=== PATIENT | male | born 1940 | race Caucasian/White ===

== ENCOUNTER 2018-01-04 06:40 | Inpatient (IN) | payer OTHER ==
[~2018-01-04] VITALS: Ht 182.9 cm; Wt 98.2 kg
[2018-01-04] MEDS ORDERED: SODIUM CHLORIDE FLUSH 10ML SYR IVF ONE (07:00)
[2018-01-04] MEDS ORDERED: methylPREDNISolone SOD SUCC 125 MG/2 ML IVP ONE (07:00)
[2018-01-04] MEDS ORDERED: PLEASE ENTER ALLERGIES MC SCH (07:00)
[2018-01-04] MEDS ORDERED: methylPREDNISolone SOD SUCC 125 MG/2 ML ONE (07:20)
[2018-01-04 07:35] LABS: BASOPHILS % (AUTO) 0 % (0-1); EOSINOPHILS # (AUTO) 0.01 x10^3/uL (0-0.4); EOSINOPHILS % (AUTO) 0 % (1-7); LYMPHOCYTES # (AUTO) 0.32 x10^3/uL (1-3.4); LYMPHOCYTES % (AUTO) 3 % (22-44); MD NO; MEAN CORPUSCULAR HEMOGLOBIN 27.7 pg (27.5-34.5); MEAN CORPUSCULAR HGB CONC 32.9 g/dL (33.2-36.2); MEAN PLATELET VOLUME 9.1 fL (7.4-10.4); MONOCYTES # (AUTO) 0.75 x10^3/uL (0.2-0.8); MONOCYTES % (AUTO) 6 % (2-9); NEUTROPHILS # (AUTO) 11.26 x10^3/uL (1.8-6.8); NEUTROPHILS % (AUTO) 91 % (42-75); PLATELET COUNT 224 x10^3/uL (130-400); RED BLOOD COUNT 5.56 x10^6/uL (4.38-5.82)
[2018-01-04 07:42] LABS: ALANINE AMINOTRANSFERASE 17 U/L (12-78); ALBUMIN 3.5 g/dL (3.4-5.0); ANION GAP 9 mmol/L (5-15); CALCIUM 8.5 mg/dL (8.5-10.1); CHLORIDE 103 mmol/L (98-107)
[2018-01-04 07:47] LABS: ALKALINE PHOSPHATASE 106 U/L (45-117); BILIRUBIN,TOTAL 1.4 mg/dL (0.2-1.0); CREATININE 1.11 mg/dL (0.7-1.3); TOTAL PROTEIN 7.1 g/dL (6.4-8.2)
[2018-01-04] MEDS ORDERED: CEFAZOLIN PMX 1GM/50ML 0 ML ONE (07:51)
[2018-01-04 07:56] LABS: TROPONIN I 0.412 ng/mL (0.000-0.045)
[2018-01-04 08:00] LABS: INTERNATIONAL NORMALIZED RATIO 1.14 (0.93-1.1)
[2018-01-04] MEDS ORDERED: AZITHROMYCIN 500 MG in SODIUM CHLORIDE 0.9% 250 ML IV ONE (08:00)
[2018-01-04] MEDS ORDERED: CEFTRIAXONE PMX 1GM/50ML 50 ML IV ONE ×2 (08:00→13:30)
[2018-01-04] MEDS ORDERED: HEPARIN 25,000 UNITS/500ML PMX 500 ML ONE (08:11)
[2018-01-04] MEDS ORDERED: HEPARIN 5,000 UNITS/ML, 1ML ONE (08:11)
[2018-01-04] MEDS ORDERED: OMNIPAQUE 350 MG/ML, 100ML BOTTLE ONE (08:12)
[2018-01-04] MEDS ORDERED: ATEN100T PO ×2 (08:15→09:24)
[2018-01-04] MEDS ORDERED: HEPARIN 5,000 UNITS/ML, 1ML IV ONE ×2 (08:30→09:00)
[2018-01-04] MEDS ORDERED: HEPARIN 5,000 UNITS/ML, 1ML IV PRN (08:30)
[2018-01-04] MEDS ORDERED: HEPARIN 25,000 UNITS/500ML PMX 500 ML IV PRN (08:30)
[2018-01-04] MEDS: HEPARIN 25,000 UNITS/500ML PMX 500 ML IV PRN (09:07)
[2018-01-04] MEDS ORDERED: OMEP-110 PO (09:24)
[2018-01-04] MEDS ORDERED: TAMS0.4C2 PO (09:24)
[2018-01-04] MEDS ORDERED: HYDR25TA6 PO (09:24)
[2018-01-04] MEDS ORDERED: GLIP-33 PO (09:24)
[2018-01-04] MEDS ORDERED: WARF-36 PO (09:24)
[2018-01-04] MEDS ORDERED: LISI-170 PO (09:24)
[2018-01-04] MEDS ORDERED: SIMV10TA3 PO (09:24)
[2018-01-04] MEDS ORDERED: METF500T17 PO (09:24)
[2018-01-04 13:18] VITALS: BP 118/60
[2018-01-04] MEDS ORDERED: LABETALOL 5MG/ML, 20ML IVPush PRN (13:30)
[2018-01-04] MEDS ORDERED: ONDANSETRON ODT 4 MG PO PRN (13:30)
[2018-01-04] MEDS ORDERED: hydrALAzine 20 MG/ML, 1ML IVPush PRN (13:30)
[2018-01-04 14:35] LABS: HEMOGLOBIN A1C 6.3 % (4.2-6.3)
[2018-01-04 15:07] LABS: THYROID STIMULATING HORMONE 0.178 mIU/L (0.358-3.740)
[2018-01-04] MEDS: methylPREDNISolone SOD SUCC 125 MG/2 ML IVPush SCH ×2 (15:47→22:39)
[2018-01-04] MEDS ORDERED: MAGNESIUM SULFATE PMX 2GM/50ML 50 ML IV ONE ×2 (16:30→17:00)
[2018-01-04] MEDS: HEPARIN 5,000 UNITS/ML, 1ML IV PRN (16:35)
[2018-01-04] MEDS: ASPIRIN 81 MG TABLET EC PO SCH (16:43)
[2018-01-04 17:14] VITALS: BP 129/65
[2018-01-04] MEDS ORDERED: CEFTRIAXONE PMX 2GM/50ML 50 ML IV SCH (17:30)
[2018-01-04 17:49] LABS: MICROSCOPIC INDICATED
[2018-01-04 19:25] LABS: CULTURE INDICATED? NO
[2018-01-04 19:37] VITALS: BP 120/63
[2018-01-04] MEDS: ATORVASTATIN 80 MG TABLET PO SCH (22:39)
[2018-01-04] MEDS: DOXYCYCLINE 100MG TABLET PO SCH (22:39)
[2018-01-05 02:09] VITALS: BP 120/63
[2018-01-05] MEDS: methylPREDNISolone SOD SUCC 125 MG/2 ML IVPush SCH ×6 (03:00→21:00)
[2018-01-05] MEDS: HEPARIN 25,000 UNITS/500ML PMX 500 ML IV PRN ×2 (05:10→06:25)
[2018-01-05] MEDS: ASPIRIN 81 MG TABLET EC PO SCH (06:00)
[2018-01-05] MEDS: DOXYCYCLINE 100MG TABLET PO SCH ×2 (10:00→20:57)
[2018-01-05 12:17] VITALS: BP 131/67
[2018-01-05] MEDS: NITROGLYCERIN 0.4 MG BOTTLE (25 TABS) SL PRN (12:50)
[2018-01-05 13:11] LABS: MEAN CORPUSCULAR HEMOGLOBIN 28.3 pg (27.5-34.5); MEAN CORPUSCULAR HGB CONC 33.4 g/dL (33.2-36.2); MEAN CORPUSCULAR VOLUME 84.7 fL (81-97); MEAN PLATELET VOLUME 9.4 fL (7.4-10.4); PLATELET COUNT 212 x10^3/uL (130-400); RED BLOOD COUNT 5.07 x10^6/uL (4.38-5.82); RED CELL DISTRIBUTION WIDTH 14.5 % (9.4-14.8)
[2018-01-05 13:17] LABS: INTERNATIONAL NORMALIZED RATIO 1.19 (0.93-1.1); PROTHROMBIN TIME 12.5 Seconds (9.6-11.5)
[2018-01-05 13:20] LABS: ALANINE AMINOTRANSFERASE 21 U/L (12-78); ALBUMIN 2.9 g/dL (3.4-5.0); ANION GAP 9 mmol/L (5-15); CALCIUM 8.4 mg/dL (8.5-10.1); CHLORIDE 107 mmol/L (98-107); CREATININE 1.22 mg/dL (0.7-1.3)
[2018-01-05 13:25] LABS: ALKALINE PHOSPHATASE 79 U/L (45-117); BILIRUBIN,TOTAL 0.8 mg/dL (0.2-1.0); TOTAL PROTEIN 6.5 g/dL (6.4-8.2)
[2018-01-05] MEDS: ACETAMINOPHEN 325 MG TABLET PO PRN (13:26)
[2018-01-05] MEDS ORDERED: MORPHINE SULFATE 4 MG/ML, 1ML IVPush PRN (13:30)
[2018-01-05 13:33] LABS: MD YES
[2018-01-05 13:34] LABS: BAND#(MANUAL) 0.88 x10^3/uL; BANDS%(MANUAL) 4 % (0-7); LYMPH#(MANUAL) 0.44 x10^3/uL (1-3.4); LYMPHS% (MANUAL) 2 % (22-44); MONOS#(MANUAL) 0.44 x10^3/uL (0.3-2.7); MONOS% (MANUAL) 2 % (2-9); SEG#(MANUAL) 20.15 x10^3/uL (1.8-6.8); SEGS% (MANUAL) 92 % (42-75)
[2018-01-05 13:35] LABS: <PLATELET ESTIMATE> ADEQUATE; <RBC MORPHOLOGY> NORMAL; PMNS WITH VACUOLES 1+
[2018-01-05 13:36] LABS: <PLT MORPHOLOGY> NORMAL PLT MORPH
[2018-01-05] MEDS ORDERED: HEPARIN 5,000 UNITS/ML, 1ML IVPush ONE (15:00)
[2018-01-05] MEDS ORDERED: KETOROLAC 30 MG/1 ML ONE (15:22)
[2018-01-05] MEDS ORDERED: KETOROLAC 30 MG/1 ML IVPush ONE (15:30)
[2018-01-05] MEDS: CEFTRIAXONE PMX 2GM/50ML 50 ML IV SCH (16:02)
[2018-01-05 20:23] VITALS: BP 157/66
[2018-01-05] MEDS: ATORVASTATIN 80 MG TABLET PO SCH (20:57)
[2018-01-05] MEDS ORDERED: QUETIAPINE 25MG TABLET PO SCH (21:00)
[2018-01-05] MEDS: HEPARIN 5,000 UNITS/ML, 1ML IV PRN (22:05)
[2018-01-06] VITALS (8 sets, daily range): BP systolic 107–173; BP diastolic 64–83
[2018-01-06] MEDS: methylPREDNISolone SOD SUCC 125 MG/2 ML IVPush SCH ×4 (01:58→21:32)
[2018-01-06] MEDS: ASPIRIN 81 MG TABLET EC PO SCH (05:23)
[2018-01-06] MEDS: ONDANSETRON 2MG/ML, 2ML IVPush PRN ×2 (06:29→10:32)
[2018-01-06] MEDS: HEPARIN 5,000 UNITS/ML, 1ML IV PRN (06:29)
[2018-01-06] MEDS: DOXYCYCLINE 100MG TABLET PO SCH ×3 (09:00→21:31)
[2018-01-06] MEDS ORDERED: LISINOPRIL 20 MG TABLET PO SCH (10:00)
[2018-01-06] MEDS: NITROGLYCERIN 0.4 MG BOTTLE (25 TABS) SL PRN ×3 (10:13→10:49)
[2018-01-06] MEDS ORDERED: ALBUTEROL SULFATE 2.5 MG/3 ML NPPB PRN (13:00)
[2018-01-06] MEDS ORDERED: FENTANYL PF 100 MCG/2ML ONE (14:18)
[2018-01-06] MEDS ORDERED: MIDAZOLAM 1 MG/ML, 5ML ONE (14:18)
[2018-01-06] MEDS ORDERED: VERAPAMIL 2.5 MG/ML, 2ML ONE (14:18)
[2018-01-06] MEDS ORDERED: HEPARIN 1,000 UNITS/ML, 10ML ONE (14:19)
[2018-01-06] MEDS: CEFTRIAXONE PMX 2GM/50ML 50 ML IV SCH (15:34)
[2018-01-06] MEDS: SODIUM CHLORIDE 0.9% 1,000 ML IV SCH ×2 (15:45→21:59)
[2018-01-06 17:35] LABS: INTERNATIONAL NORMALIZED RATIO 1.23 (0.93-1.1); PROTHROMBIN TIME 12.9 Seconds (9.6-11.5)
[2018-01-06] MEDS ORDERED: WARFARIN 7.5 MG TABLET PO-COUM ONE (19:00)
[2018-01-06] MEDS: HEPARIN 25,000 UNITS/500ML PMX 500 ML IV PRN (21:20)
[2018-01-06] MEDS: ATORVASTATIN 80 MG TABLET PO SCH (21:31)
[2018-01-06] MEDS: GUAIFENESIN ER 600 MG TABLET PO SCH (21:32)
[2018-01-06] MEDS: ACETAMINOPHEN 325 MG TABLET PO PRN (21:33)
[2018-01-06] MEDS: QUETIAPINE 25MG TABLET PO SCH (21:33)
[2018-01-07 00:30] VITALS: BP 154/64
[2018-01-07] MEDS: methylPREDNISolone SOD SUCC 125 MG/2 ML IVPush SCH ×2 (03:00→15:22)
[2018-01-07 04:33] LABS: MEAN CORPUSCULAR HGB CONC 33.1 g/dL (33.2-36.2); MEAN CORPUSCULAR VOLUME 84.7 fL (81-97); MEAN PLATELET VOLUME 9.9 fL (7.4-10.4); PLATELET COUNT 192 x10^3/uL (130-400); RED CELL DISTRIBUTION WIDTH 14.7 % (9.4-14.8)
[2018-01-07 04:41] LABS: INTERNATIONAL NORMALIZED RATIO 1.18 (0.93-1.1); PROTHROMBIN TIME 12.4 Seconds (9.6-11.5)
[2018-01-07 04:45] LABS: ALBUMIN 2.8 g/dL (3.4-5.0); ANION GAP 7 mmol/L (5-15); CALCIUM 8.1 mg/dL (8.5-10.1); CHLORIDE 105 mmol/L (98-107)
[2018-01-07 04:48] LABS: ALANINE AMINOTRANSFERASE 25 U/L (12-78); ALKALINE PHOSPHATASE 71 U/L (45-117); BILIRUBIN,TOTAL 0.6 mg/dL (0.2-1.0); CREATININE 1.13 mg/dL (0.7-1.3); TOTAL PROTEIN 6.4 g/dL (6.4-8.2)
[2018-01-07 04:50] LABS: MD YES
[2018-01-07 04:52] LABS: <PLATELET ESTIMATE> ADEQUATE; <PLT MORPHOLOGY> NORMAL PLT MORPH; <RBC MORPHOLOGY> NORMAL; BAND#(MANUAL) 0.43 x10^3/uL; BANDS%(MANUAL) 4 % (0-7); LYMPH#(MANUAL) 0.22 x10^3/uL (1-3.4); LYMPHS% (MANUAL) 2 % (22-44); SEG#(MANUAL) 10.15 x10^3/uL (1.8-6.8); SEGS% (MANUAL) 94 % (42-75)
[2018-01-07] MEDS: HEPARIN 5,000 UNITS/ML, 1ML IV PRN (05:42)
[2018-01-07 06:58] VITALS: BP 130/69
[2018-01-07] MEDS: SODIUM CHLORIDE 0.9% 1,000 ML IV SCH ×2 (07:23→15:23)
[2018-01-07] MEDS ORDERED: ATENOLOL 50 MG TABLET ONE (09:14)
[2018-01-07] MEDS: LISINOPRIL 20 MG TABLET PO SCH (09:17)
[2018-01-07] MEDS: ATENOLOL 50 MG TABLET PO SCH (09:17)
[2018-01-07] MEDS: ASPIRIN 81 MG TABLET EC PO SCH (09:17)
[2018-01-07] MEDS: DOXYCYCLINE 100MG TABLET PO SCH ×2 (09:17→20:21)
[2018-01-07] MEDS: GUAIFENESIN ER 600 MG TABLET PO SCH ×2 (09:18→20:21)
[2018-01-07 12:46] VITALS: BP 135/75
[2018-01-07] MEDS: SERTRALINE 50MG TABLET PO SCH (13:26)
[2018-01-07] MEDS: HEPARIN 25,000 UNITS/500ML PMX 500 ML IV PRN (13:33)
[2018-01-07] MEDS: CEFTRIAXONE PMX 2GM/50ML 50 ML IV SCH (15:22)
[2018-01-07] MEDS ORDERED: WARFARIN 7.5 MG TABLET PO-COUM SCH (18:00)
[2018-01-07] MEDS ORDERED: CALCIUM CARBONATE 500 MG TAB.CHEW ONE (18:16)
[2018-01-07] MEDS: CALCIUM CARBONATE 500 MG TAB.CHEW PO PRN (18:19)
[2018-01-07] MEDS: ONDANSETRON 2MG/ML, 2ML IVPush PRN (20:18)
[2018-01-07] MEDS: QUETIAPINE 25MG TABLET PO SCH (20:21)
[2018-01-07] MEDS: ATORVASTATIN 80 MG TABLET PO SCH ×2 (20:21→20:25)
[2018-01-07 20:34] VITALS: BP 167/72
[2018-01-08 00:43] VITALS: BP 123/73
[2018-01-08] MEDS: methylPREDNISolone SOD SUCC 125 MG/2 ML IVPush SCH (02:51)
[2018-01-08] MEDS: HEPARIN 25,000 UNITS/500ML PMX 500 ML IV PRN (02:57)
[2018-01-08 05:26] LABS: MEAN CORPUSCULAR VOLUME 84.6 fL (81-97); MEAN PLATELET VOLUME 9.7 fL (7.4-10.4); PLATELET COUNT 196 x10^3/uL (130-400); RED BLOOD COUNT 4.61 x10^6/uL (4.38-5.82); RED CELL DISTRIBUTION WIDTH 14.2 % (9.4-14.8)
[2018-01-08 05:29] LABS: INTERNATIONAL NORMALIZED RATIO 2.83 (0.93-1.1); PROTHROMBIN TIME 28.8 Seconds (9.6-11.5)
[2018-01-08 05:32] LABS: CHLORIDE 107 mmol/L (98-107)
[2018-01-08 05:40] LABS: ANION GAP 6 mmol/L (5-15); CALCIUM 8.3 mg/dL (8.5-10.1); CREATININE 0.98 mg/dL (0.7-1.3)
[2018-01-08 05:49] LABS: BASOPHILS # (AUTO) 0.01 x10^3/uL (0-0.1); BASOPHILS % (AUTO) 0 % (0-1); EOSINOPHILS % (AUTO) 0 % (1-7); LYMPHOCYTES # (AUTO) 0.32 x10^3/uL (1-3.4); LYMPHOCYTES % (AUTO) 3 % (22-44); MD SCAN; MONOCYTES # (AUTO) 0.39 x10^3/uL (0.2-0.8); MONOCYTES % (AUTO) 3 % (2-9); NEUTROPHILS % (AUTO) 95 % (42-75)
[2018-01-08 08:05] VITALS: BP 114/60
[2018-01-08] MEDS: ASPIRIN 81 MG TABLET EC PO SCH (09:00)
[2018-01-08] MEDS: LISINOPRIL 20 MG TABLET PO SCH (09:12)
[2018-01-08] MEDS: DOXYCYCLINE 100MG TABLET PO SCH ×2 (09:12→21:00)
[2018-01-08] MEDS: SERTRALINE 50MG TABLET PO SCH (09:12)
[2018-01-08] MEDS: ATENOLOL 50 MG TABLET PO SCH (09:12)
[2018-01-08] MEDS: GUAIFENESIN ER 600 MG TABLET PO SCH ×2 (09:12→21:14)
[2018-01-08] MEDS: OMEPRAZOLE 20 MG CAPSULE.DR PO SCH (09:12)
[2018-01-08 13:05] VITALS: BP 138/76
[2018-01-08] MEDS: CALCIUM CARBONATE 500 MG TAB.CHEW PO PRN ×2 (13:55→17:52)
[2018-01-08 14:47] LABS: OCCULT BLOOD POSITIVE (NEGATIVE)
[2018-01-08 15:14] LABS: CLOSTRIDIUM DIFFICILE ANTIGEN NEGATIVE; CLOSTRIDIUM DIFFICILE TOXIN NEGATIVE (Negative)
[2018-01-08] MEDS: CEFTRIAXONE PMX 2GM/50ML 50 ML IV SCH (16:03)
[2018-01-08] MEDS ORDERED: WARFARIN 2.5 MG TABLET PO-COUM SCH (18:00)
[2018-01-08 19:55] VITALS: BP 124/63
[2018-01-08] MEDS: QUETIAPINE 25MG TABLET PO SCH (21:00)
[2018-01-08] MEDS: ATORVASTATIN 80 MG TABLET PO SCH (21:00)
[2018-01-08 21:59] LABS: OCCULT BLOOD NEGATIVE (NEGATIVE)
[2018-01-09 01:55] VITALS: BP 129/72
[2018-01-09] MEDS: OMEPRAZOLE 20 MG CAPSULE.DR PO SCH (06:00)
[2018-01-09] MEDS: ASPIRIN 81 MG TABLET EC PO SCH (06:00)
[2018-01-09 06:53] LABS: BASOPHILS # (AUTO) 0.02 x10^3/uL (0-0.1); BASOPHILS % (AUTO) 0 % (0-1); EOSINOPHILS # (AUTO) 0.01 x10^3/uL (0-0.4); EOSINOPHILS % (AUTO) 0 % (1-7); LYMPHOCYTES # (AUTO) 1.15 x10^3/uL (1-3.4); LYMPHOCYTES % (AUTO) 11 % (22-44); MD NO; MEAN CORPUSCULAR HEMOGLOBIN 28.2 pg (27.5-34.5); MEAN CORPUSCULAR HGB CONC 33.3 g/dL (33.2-36.2); MEAN CORPUSCULAR VOLUME 84.7 fL (81-97); MEAN PLATELET VOLUME 10.3 fL (7.4-10.4); MONOCYTES # (AUTO) 0.88 x10^3/uL (0.2-0.8); MONOCYTES % (AUTO) 8 % (2-9); NEUTROPHILS # (AUTO) 8.74 x10^3/uL (1.8-6.8); NEUTROPHILS % (AUTO) 81 % (42-75); PLATELET COUNT 185 x10^3/uL (130-400); RED CELL DISTRIBUTION WIDTH 14.5 % (9.4-14.8)
[2018-01-09 06:55] LABS: ANION GAP 7 mmol/L (5-15); CALCIUM 8.3 mg/dL (8.5-10.1); CHLORIDE 106 mmol/L (98-107); CREATININE 0.96 mg/dL (0.7-1.3)
[2018-01-09 07:07] LABS: INTERNATIONAL NORMALIZED RATIO 6.99 (0.93-1.1); PROTHROMBIN TIME 68.8 Seconds (9.6-11.5)
[2018-01-09 07:43] VITALS: BP 106/62
[2018-01-09] MEDS: ATENOLOL 50 MG TABLET PO SCH (08:35)
[2018-01-09] MEDS: GUAIFENESIN ER 600 MG TABLET PO SCH ×2 (08:35→20:49)
[2018-01-09] MEDS: DOXYCYCLINE 100MG TABLET PO SCH ×2 (08:35→20:49)
[2018-01-09] MEDS: SERTRALINE 50MG TABLET PO SCH (08:36)
[2018-01-09] MEDS: LISINOPRIL 20 MG TABLET PO SCH (08:36)
[2018-01-09 12:54] VITALS: BP 108/63
[2018-01-09] MEDS: CEFTRIAXONE PMX 2GM/50ML 50 ML IV SCH (15:31)
[2018-01-09 19:55] VITALS: BP 103/60
[2018-01-09] MEDS: ATORVASTATIN 80 MG TABLET PO SCH (20:50)
[2018-01-09] MEDS: QUETIAPINE 25MG TABLET PO SCH (20:50)
[2018-01-10 01:13] VITALS: BP 115/67
[2018-01-10 04:59] LABS: BASOPHILS # (AUTO) 0.03 x10^3/uL (0-0.1); BASOPHILS % (AUTO) 0 % (0-1); EOSINOPHILS # (AUTO) 0.05 x10^3/uL (0-0.4); EOSINOPHILS % (AUTO) 1 % (1-7); LYMPHOCYTES # (AUTO) 1.28 x10^3/uL (1-3.4); LYMPHOCYTES % (AUTO) 13 % (22-44); MD NO; MEAN CORPUSCULAR HEMOGLOBIN 27.3 pg (27.5-34.5); MEAN CORPUSCULAR HGB CONC 32.4 g/dL (33.2-36.2); MEAN CORPUSCULAR VOLUME 84.1 fL (81-97); MEAN PLATELET VOLUME 10.2 fL (7.4-10.4); MONOCYTES # (AUTO) 0.84 x10^3/uL (0.2-0.8); MONOCYTES % (AUTO) 8 % (2-9); NEUTROPHILS # (AUTO) 7.82 x10^3/uL (1.8-6.8); NEUTROPHILS % (AUTO) 78 % (42-75); PLATELET COUNT 177 x10^3/uL (130-400); RED BLOOD COUNT 4.04 x10^6/uL (4.38-5.82); RED CELL DISTRIBUTION WIDTH 14.4 % (9.4-14.8)
[2018-01-10 05:12] LABS: ANION GAP 5 mmol/L (5-15); CALCIUM 8.2 mg/dL (8.5-10.1); CHLORIDE 106 mmol/L (98-107)
[2018-01-10 05:13] LABS: CREATININE 0.96 mg/dL (0.7-1.3)
[2018-01-10 05:20] LABS: INTERNATIONAL NORMALIZED RATIO 5.71 (0.93-1.1); PROTHROMBIN TIME 56.6 Seconds (9.6-11.5)
[2018-01-10 05:47] VITALS: BP 99/56
[2018-01-10 05:51] VITALS: BP 93/50
[2018-01-10] MEDS: OMEPRAZOLE 20 MG CAPSULE.DR PO SCH (05:52)
[2018-01-10] MEDS: CALCIUM CARBONATE 500 MG TAB.CHEW PO PRN ×4 (05:52→22:26)
[2018-01-10] MEDS: ASPIRIN 81 MG TABLET EC PO SCH (05:52)
[2018-01-10 06:40] VITALS: BP 123/62
[2018-01-10] MEDS ORDERED: HOLD COUMADIN MC PRN (08:30)
[2018-01-10] MEDS: DOXYCYCLINE 100MG TABLET PO SCH ×2 (09:02→22:12)
[2018-01-10] MEDS: LISINOPRIL 20 MG TABLET PO SCH (09:02)
[2018-01-10] MEDS: ATENOLOL 50 MG TABLET PO SCH (09:02)
[2018-01-10] MEDS: SERTRALINE 50MG TABLET PO SCH (09:02)
[2018-01-10] MEDS: GUAIFENESIN ER 600 MG TABLET PO SCH ×2 (09:02→22:12)
[2018-01-10 12:35] VITALS: BP 113/59
[2018-01-10] MEDS: CEFTRIAXONE PMX 2GM/50ML 50 ML IV SCH (15:39)
[2018-01-10] MEDS: ATORVASTATIN 80 MG TABLET PO SCH (21:00)
[2018-01-10 21:53] VITALS: BP 102/59
[2018-01-10] MEDS: QUETIAPINE 25MG TABLET PO SCH (22:12)
[2018-01-11 05:03] VITALS: BP 117/63
[2018-01-11 05:06] LABS: BASOPHILS # (AUTO) 0.02 x10^3/uL (0-0.1); BASOPHILS % (AUTO) 0 % (0-1); EOSINOPHILS # (AUTO) 0.13 x10^3/uL (0-0.4); EOSINOPHILS % (AUTO) 1 % (1-7); LYMPHOCYTES # (AUTO) 1.45 x10^3/uL (1-3.4); LYMPHOCYTES % (AUTO) 13 % (22-44); MD NO; MEAN CORPUSCULAR HEMOGLOBIN 28.1 pg (27.5-34.5); MEAN CORPUSCULAR HGB CONC 33.4 g/dL (33.2-36.2); MEAN CORPUSCULAR VOLUME 84.2 fL (81-97); MEAN PLATELET VOLUME 9.4 fL (7.4-10.4); MONOCYTES # (AUTO) 0.71 x10^3/uL (0.2-0.8); MONOCYTES % (AUTO) 6 % (2-9); NEUTROPHILS # (AUTO) 9.21 x10^3/uL (1.8-6.8); NEUTROPHILS % (AUTO) 80 % (42-75); PLATELET COUNT 189 x10^3/uL (130-400); RED BLOOD COUNT 4.02 x10^6/uL (4.38-5.82); RED CELL DISTRIBUTION WIDTH 14.5 % (9.4-14.8)
[2018-01-11] MEDS: ASPIRIN 81 MG TABLET EC PO SCH (05:08)
[2018-01-11] MEDS: OMEPRAZOLE 20 MG CAPSULE.DR PO SCH (05:09)
[2018-01-11] MEDS: CALCIUM CARBONATE 500 MG TAB.CHEW PO PRN (05:09)
[2018-01-11 05:12] LABS: INTERNATIONAL NORMALIZED RATIO 2.67 (0.93-1.1); PROTHROMBIN TIME 27.3 Seconds (9.6-11.5)
[2018-01-11 05:13] LABS: ALBUMIN 2.4 g/dL (3.4-5.0); ANION GAP 6 mmol/L (5-15); CALCIUM 8.2 mg/dL (8.5-10.1); CHLORIDE 105 mmol/L (98-107)
[2018-01-11 05:18] LABS: ALANINE AMINOTRANSFERASE 22 U/L (12-78); ALKALINE PHOSPHATASE 64 U/L (45-117); BILIRUBIN,TOTAL 0.6 mg/dL (0.2-1.0); CREATININE 0.96 mg/dL (0.7-1.3); TOTAL PROTEIN 5.2 g/dL (6.4-8.2)
[2018-01-11 07:32] VITALS: BP 121/58
[2018-01-11] MEDS: LISINOPRIL 20 MG TABLET PO SCH (08:55)
[2018-01-11] MEDS: SERTRALINE 50MG TABLET PO SCH (08:55)
[2018-01-11] MEDS: DOXYCYCLINE 100MG TABLET PO SCH (08:55)
[2018-01-11] MEDS: ATENOLOL 50 MG TABLET PO SCH (08:55)
[2018-01-11] MEDS: GUAIFENESIN ER 600 MG TABLET PO SCH (08:55)
[2018-01-11 12:23] VITALS: BP 118/62
[2018-01-11] MEDS: CEFTRIAXONE PMX 2GM/50ML 50 ML IV SCH (15:23)
[2018-01-11] MEDS ORDERED: PRED20TA PO (16:48)
[2018-01-11] MEDS ORDERED: LISI-170 PO (16:48)
[2018-01-11] MEDS ORDERED: SERT50TA5 PO (16:48)
[2018-01-11] MEDS ORDERED: ATOR-2 PO (16:48)
[2018-01-11] MEDS ORDERED: QUET25TA PO (16:48)
[2018-01-11] MEDS ORDERED: ATEN50TA41 PO (16:48)
[2018-01-11] MEDS ORDERED: ASPI81TA45 PO (16:48)
[2018-01-11] MEDS ORDERED: APIX5TAB PO (16:50)
[2018-01-11] MEDS ORDERED: WARFARIN 5 MG TABLET PO-COUM ONE (18:00)
== END 2018-01-11 18:20 | DRG 871 ==
LOC: ED 06:56 → EDIP 09:23 → 5SO 12:58
PROVIDERS: ADMIT Family Medicine; ATTEND Family Medicine
PROC: 4A023N7 Measurement of Cardiac Sampling and Pressure, Left Heart, Percutaneous Approach (ICD-10-PCS; principal; 2018-01-06)
PROC: B2131ZZ Fluoroscopy of Multiple Coronary Artery Bypass Grafts using Low Osmolar Contrast (ICD-10-PCS; 2018-01-06)
PROC: B2181ZZ Fluoroscopy of Left Internal Mammary Bypass Graft using Low Osmolar Contrast (ICD-10-PCS; 2018-01-06)
PROC: B2151ZZ Fluoroscopy of Left Heart using Low Osmolar Contrast (ICD-10-PCS; 2018-01-06)
PROC: B2111ZZ Fluoroscopy of Multiple Coronary Arteries using Low Osmolar Contrast (ICD-10-PCS; 2018-01-06)
DX: A41.9 Sepsis, unspecified organism (principal); I21.4 Non-ST elevation (NSTEMI) myocardial infarction; J18.1 Lobar pneumonia, unspecified organism; J96.91 Respiratory failure, unspecified with hypoxia; T82.898A Other specified complication of vascular prosthetic devices, implants and grafts, initial encounter; D68.69 Other thrombophilia; F32.3 Major depressive disorder, single episode, severe with psychotic features; J44.0 Chronic obstructive pulmonary disease with (acute) lower respiratory infection; E11.9 Type 2 diabetes mellitus without complications; E78.5 Hyperlipidemia, unspecified; E83.42 Hypomagnesemia; F17.210 Nicotine dependence, cigarettes, uncomplicated; F43.10 Post-traumatic stress disorder, unspecified; I10 Essential (primary) hypertension; I25.10 Atherosclerotic heart disease of native coronary artery without angina pectoris; I25.82 Chronic total occlusion of coronary artery; I48.2 Chronic atrial fibrillation; K21.9 Gastro-esophageal reflux disease without esophagitis; N40.0 Benign prostatic hyperplasia without lower urinary tract symptoms; Y83.8 Other surgical procedures as the cause of abnormal reaction of the patient, or of later complication, without mention of misadventure at the time of the procedure; Z59.0 Homelessness; Z63.8 Other specified problems related to primary support group; Z79.01 Long term (current) use of anticoagulants; Z79.899 Other long term (current) drug therapy; Z81.1 Family history of alcohol abuse and dependence; Z91.14 Patient's other noncompliance with medication regimen; Z95.0 Presence of cardiac pacemaker; Z95.1 Presence of aortocoronary bypass graft; Y92.89 Other specified places as the place of occurrence of the external cause; Z79.82 Long term (current) use of aspirin; Z90.49 Acquired absence of other specified parts of digestive tract; Z88.8 Allergy status to other drugs, medicaments and biological substances; Z91.018 Allergy to other foods
CPT/HCPCS: 36415; 36600; 71045; 71275; 80048; 80053; 81001; 82140; 82272; 82803; 83036; 83605; 83735; 83880; 84100; 84145; 84443; 84484; 85014; 85018; 85025; 85520; 85610; 85730; 87040; 87324; 93005; 93306; 93458; 94640; 96374; 96375; 99156; 99291; C1760; C1769; C1894; G0378; J0456; J0696; J1644; J1885; J2250; J2405; J3010; Q9967; J2930; J3475; J7030; J7050; J7512

== ENCOUNTER 2018-01-11 17:31 | Inpatient (IN) | payer OTHER ==
[~2018-01-11] VITALS: Ht 193 cm; Wt 96.5 kg
[~2018-01-11 17:31] MED LIST: APIX5TAB PO; ASPI81TA45 PO; ATEN100T PO; ATEN50TA41 PO; ATOR-2 PO; GLIP-33 PO; HYDR25TA6 PO; LISI-170 PO; METF500T17 PO; OMEP-110 PO; PRED20TA PO; QUET25TA PO; SERT50TA5 PO; SIMV10TA3 PO; TAMS0.4C2 PO; WARF-36 PO
[2018-01-11] MEDS ORDERED: BISACODYL 10 MG SUPP PR PRN (18:30)
[2018-01-11] MEDS ORDERED: DOCUSATE 100 MG CAPSULE PO PRN (18:30)
[2018-01-11] MEDS ORDERED: POLYETHYLENE GLYCOL 17 GM PACKET PO PRN (18:30)
[2018-01-11] MEDS ORDERED: ONDANSETRON ODT 4 MG PO PRN (18:30)
[2018-01-11 18:34] VITALS: BP 126/66
[2018-01-11 18:35] VITALS: BP 126/66
[2018-01-11 19:56] VITALS: BP 115/64
[2018-01-11] MEDS: SIMVASTATIN 10 MG TABLET PO SCH (20:35)
[2018-01-11] MEDS: WARFARIN 5 MG TABLET PO-COUM SCH (20:38)
[2018-01-12 05:45] LABS: HCT (SEDRATE) 36.7 % (39.2-51.8)
[2018-01-12] MEDS: OMEPRAZOLE 20 MG CAPSULE.DR PO SCH (05:47)
[2018-01-12 05:48] LABS: BASOPHILS # (AUTO) 0.01 x10^3/uL (0-0.1); BASOPHILS % (AUTO) 0 % (0-1); EOSINOPHILS # (AUTO) 0.18 x10^3/uL (0-0.4); EOSINOPHILS % (AUTO) 2 % (1-7); LYMPHOCYTES # (AUTO) 2.01 x10^3/uL (1-3.4); LYMPHOCYTES % (AUTO) 17 % (22-44); MD NO; MEAN CORPUSCULAR HEMOGLOBIN 28.1 pg (27.5-34.5); MEAN CORPUSCULAR HGB CONC 33.6 g/dL (33.2-36.2); MEAN CORPUSCULAR VOLUME 83.6 fL (81-97); MEAN PLATELET VOLUME 9.4 fL (7.4-10.4); MONOCYTES # (AUTO) 0.98 x10^3/uL (0.2-0.8); MONOCYTES % (AUTO) 8 % (2-9); NEUTROPHILS # (AUTO) 8.71 x10^3/uL (1.8-6.8); NEUTROPHILS % (AUTO) 73 % (42-75); PLATELET COUNT 246 x10^3/uL (130-400); RED CELL DISTRIBUTION WIDTH 14.3 % (9.4-14.8)
[2018-01-12 05:52] LABS: INTERNATIONAL NORMALIZED RATIO 1.79 (0.93-1.1); PROTHROMBIN TIME 18.6 Seconds (9.6-11.5)
[2018-01-12 05:57] LABS: ALANINE AMINOTRANSFERASE 24 U/L (12-78); ALBUMIN 2.7 g/dL (3.4-5.0); ANION GAP 7 mmol/L (5-15); CALCIUM 8.2 mg/dL (8.5-10.1); CHLORIDE 106 mmol/L (98-107); CREATININE 0.85 mg/dL (0.7-1.3)
[2018-01-12 06:24] LABS: ALKALINE PHOSPHATASE 71 U/L (45-117); BILIRUBIN,TOTAL 0.6 mg/dL (0.2-1.0); CHOL/HDL RATIO 4.7; CHOLESTEROL, TOTAL 118 mg/dL (140-239); HDL CHOL % 21 % (26-37); HDL CHOLESTEROL (DIRECT) 25 mg/dL (40-60); LDL CHOLESTEROL,CALCULATED 63 mg/dL (54-169); LDL/HDL RATIO 2.5 (0.5-3.0); T4 (THYROXINE) 7.5 mcg/dL (4.5-12.1); TOTAL PROTEIN 5.6 g/dL (6.4-8.2); TRIGLYCERIDES 149 mg/dL (50-200); VLDL CHOLESTEROL 30 mg/dL (0-25)
[2018-01-12 07:20] VITALS: BP 125/73
[2018-01-12] MEDS: TAMSULOSIN 0.4 MG CAP.ER.24H PO SCH (08:10)
[2018-01-12] MEDS: SENNA/DOCUSATE TABLET PO SCH (08:10)
[2018-01-12] MEDS: metFORMIN 500 MG TABLET PO SCH ×2 (08:10→17:07)
[2018-01-12] MEDS: LISINOPRIL 20 MG TABLET PO SCH (08:11)
[2018-01-12] MEDS: HYDROCHLOROTHIAZIDE 25 MG TABLET PO SCH (08:11)
[2018-01-12] MEDS: WARFARIN 5 MG TABLET PO-COUM SCH (17:10)
[2018-01-12 19:34] VITALS: BP 93/58
[2018-01-12] MEDS: SIMVASTATIN 10 MG TABLET PO SCH (20:20)
[2018-01-12] MEDS ORDERED: OLANZAPINE 2.5 MG TABLET PO SCH (21:00)
[2018-01-13 07:38] VITALS: BP 109/61
[2018-01-13] MEDS: OMEPRAZOLE 20 MG CAPSULE.DR PO SCH (08:00)
[2018-01-13] MEDS: TAMSULOSIN 0.4 MG CAP.ER.24H PO SCH (08:01)
[2018-01-13] MEDS: metFORMIN 500 MG TABLET PO SCH ×3 (08:01→17:19)
[2018-01-13] MEDS: HYDROCHLOROTHIAZIDE 25 MG TABLET PO SCH (08:01)
[2018-01-13] MEDS: LISINOPRIL 20 MG TABLET PO SCH (08:01)
[2018-01-13] MEDS: SENNA/DOCUSATE TABLET PO SCH (08:01)
[2018-01-13 18:00] LABS: INTERNATIONAL NORMALIZED RATIO 2.33 (0.93-1.1); PROTHROMBIN TIME 23.9 Seconds (9.6-11.5)
[2018-01-13] MEDS: WARFARIN 5 MG TABLET PO-COUM SCH (19:33)
[2018-01-13 19:40] VITALS: BP 96/55
[2018-01-13] MEDS: DOXYCYCLINE 100MG TABLET PO SCH (20:49)
[2018-01-13] MEDS: SIMVASTATIN 10 MG TABLET PO SCH (20:51)
[2018-01-13] MEDS ORDERED: OLANZAPINE 2.5 MG TABLET PO SCH (21:00)
[2018-01-14] MEDS: OMEPRAZOLE 20 MG CAPSULE.DR PO SCH (05:56)
[2018-01-14 07:43] VITALS: BP 118/62
[2018-01-14] MEDS: TAMSULOSIN 0.4 MG CAP.ER.24H PO SCH (08:49)
[2018-01-14] MEDS: HYDROCHLOROTHIAZIDE 25 MG TABLET PO SCH (08:49)
[2018-01-14] MEDS: SENNA/DOCUSATE TABLET PO SCH (08:49)
[2018-01-14] MEDS: metFORMIN 500 MG TABLET PO SCH (08:49)
[2018-01-14] MEDS: LISINOPRIL 20 MG TABLET PO SCH (08:50)
[2018-01-14] MEDS: DOXYCYCLINE 100MG TABLET PO SCH (08:50)
[2018-01-14 15:05] VITALS: BP 69/38
[2018-01-14] MEDS ORDERED: SODIUM CHLORIDE 0.9% 1,000ML IVBOLUS ONE (15:30)
[2018-01-14] MEDS ORDERED: SODIUM CHLORIDE 0.9% 1,000 ML IV SCH (15:30)
[2018-01-14 15:59] LABS: ALANINE AMINOTRANSFERASE 19 U/L (12-78); ALBUMIN 2.5 g/dL (3.4-5.0); ANION GAP 10 mmol/L (5-15); CALCIUM 7.9 mg/dL (8.5-10.1); CHLORIDE 108 mmol/L (98-107); CREATININE 1.22 mg/dL (0.7-1.3)
[2018-01-14 16:04] LABS: ALKALINE PHOSPHATASE 71 U/L (45-117); BILIRUBIN,TOTAL 0.7 mg/dL (0.2-1.0); TOTAL PROTEIN 5.2 g/dL (6.4-8.2); TROPONIN I 0.092 ng/mL (0.000-0.045)
[2018-01-14 16:40] LABS: BASOPHILS # (AUTO) 0.01 x10^3/uL (0-0.1); BASOPHILS % (AUTO) 0 % (0-1); EOSINOPHILS # (AUTO) 0.15 x10^3/uL (0-0.4); EOSINOPHILS % (AUTO) 2 % (1-7); LYMPHOCYTES # (AUTO) 1.31 x10^3/uL (1-3.4); LYMPHOCYTES % (AUTO) 14 % (22-44); MD NO; MEAN CORPUSCULAR HEMOGLOBIN 27.7 pg (27.5-34.5); MEAN CORPUSCULAR HGB CONC 32.7 g/dL (33.2-36.2); MEAN CORPUSCULAR VOLUME 84.9 fL (81-97); MONOCYTES # (AUTO) 0.66 x10^3/uL (0.2-0.8); MONOCYTES % (AUTO) 7 % (2-9); NEUTROPHILS # (AUTO) 7.11 x10^3/uL (1.8-6.8); NEUTROPHILS % (AUTO) 77 % (42-75); PLATELET COUNT 273 x10^3/uL (130-400); RED BLOOD COUNT 4.21 x10^6/uL (4.38-5.82); RED CELL DISTRIBUTION WIDTH 15.3 % (9.4-14.8)
== END 2018-01-14 15:45 | disposition home or self-care (01) | DRG 885 ==
LOC: 3E 18:16 → 5SO 01-14 15:54 → 3E 01-14 16:02 → 5SO 01-14 16:02
PROVIDERS: ADMIT Psychiatry & Neurology Psychosomatic Medicine; ATTEND Psychiatry & Neurology Psychosomatic Medicine
DX: F29 Unspecified psychosis not due to a substance or known physiological condition (principal); I21.4 Non-ST elevation (NSTEMI) myocardial infarction; D68.59 Other primary thrombophilia; R45.851 Suicidal ideations; F22 Delusional disorders; I48.2 Chronic atrial fibrillation; I10 Essential (primary) hypertension; I25.10 Atherosclerotic heart disease of native coronary artery without angina pectoris; E78.5 Hyperlipidemia, unspecified; E11.9 Type 2 diabetes mellitus without complications; F43.10 Post-traumatic stress disorder, unspecified; I25.2 Old myocardial infarction; K21.9 Gastro-esophageal reflux disease without esophagitis; D72.829 Elevated white blood cell count, unspecified; R33.9 Retention of urine, unspecified; F03.90 Unspecified dementia, unspecified severity, without behavioral disturbance, psychotic disturbance, mood disturbance, and anxiety; E86.0 Dehydration; R10.9 Unspecified abdominal pain; Z87.01 Personal history of pneumonia (recurrent); Z87.891 Personal history of nicotine dependence; Z79.01 Long term (current) use of anticoagulants; Z95.1 Presence of aortocoronary bypass graft; Z59.0 Homelessness; Z95.0 Presence of cardiac pacemaker
CPT/HCPCS: 36415; 71045; 80053; 80061; 82140; 82607; 82962; 83605; 83735; 84436; 84443; 84484; 85025; 85610; 85651; 86592; 93005; Q0162; J7030

== ENCOUNTER 2018-01-14 15:46 | Inpatient (IN) | payer OTHER ==
[~2018-01-14] VITALS: Ht 193 cm; Wt 96.4 kg
[2018-01-14 16:00] VITALS: BP 124/84
[2018-01-14] MEDS ORDERED: SODIUM CHLORIDE 0.9% 1,000 ML IV SCH (16:41)
[2018-01-14 16:56] VITALS: BP 84/48
[2018-01-14] MEDS ORDERED: ONDANSETRON ODT 4 MG PO PRN (17:00)
[2018-01-14] MEDS ORDERED: VANCOMYCIN PER PHARMACY MC PRN (17:00)
[2018-01-14] MEDS ORDERED: ONDANSETRON 2MG/ML, 2ML IVPush PRN (17:00)
[2018-01-14] MEDS ORDERED: PLEASE ENTER HEIGHT AND WEIGHT MC SCH (17:00)
[2018-01-14] MEDS ORDERED: ACETAMINOPHEN 325 MG TABLET PO PRN (17:00)
[2018-01-14 17:47] LABS: INTERNATIONAL NORMALIZED RATIO 2.21 (0.93-1.1); PROTHROMBIN TIME 22.7 Seconds (9.6-11.5)
[2018-01-14 17:54] LABS: TROPONIN I 0.103 ng/mL (0.000-0.045)
[2018-01-14] MEDS: PIPERACILLIN/TAZO/PMX 4.5GM 100 ML IV SCH (18:33)
[2018-01-14 18:36] VITALS: BP 83/48
[2018-01-14] MEDS ORDERED: SODIUM CHLORIDE 0.9% 1,000ML IVBOLUS ONE (19:00)
[2018-01-14 19:10] VITALS: BP 91/48
[2018-01-14] MEDS: metFORMIN 500 MG TABLET PO SCH (21:18)
[2018-01-14] MEDS: QUETIAPINE 25MG TABLET PO SCH (21:18)
[2018-01-14] MEDS: ATORVASTATIN 80 MG TABLET PO SCH (21:18)
[2018-01-14] MEDS ORDERED: VANCOMYCIN 2,000 MG in SODIUM CHLORIDE 0.9% 500 ML IV ONE (21:30)
[2018-01-14] MEDS ORDERED: PHARMACOKINETIC MONITORING MC PRN (21:30)
[2018-01-14] MEDS ORDERED: PHARMACOKINETIC CONSULTATION MC ONE (21:30)
[2018-01-14] MEDS ORDERED: SODIUM CHLORIDE 0.9%, 500ML IVBOLUS ONE (22:00)
[2018-01-14] MEDS: CALCIUM CARBONATE 500 MG TAB.CHEW PO PRN (22:47)
[2018-01-15 00:11] LABS: TROPONIN I 0.089 ng/mL (0.000-0.045)
[2018-01-15] MEDS: PIPERACILLIN/TAZO/PMX 4.5GM 100 ML IV SCH ×2 (00:30→06:09)
[2018-01-15 01:03] VITALS: BP 104/61
[2018-01-15 05:45] LABS: INTERNATIONAL NORMALIZED RATIO 2.19 (0.93-1.1); PROTHROMBIN TIME 22.5 Seconds (9.6-11.5)
[2018-01-15 05:47] LABS: ANION GAP 9 mmol/L (5-15); CALCIUM 7.7 mg/dL (8.5-10.1); CHLORIDE 108 mmol/L (98-107); CREATININE 1.26 mg/dL (0.7-1.3)
[2018-01-15] MEDS: ASPIRIN 81 MG TABLET EC PO SCH (06:00)
[2018-01-15] MEDS ORDERED: ATENOLOL 50 MG TABLET PO SCH (06:00)
[2018-01-15 06:29] LABS: BASOPHILS # (AUTO) 0.04 x10^3/uL (0-0.1); BASOPHILS % (AUTO) 0 % (0-1); EOSINOPHILS # (AUTO) 0.18 x10^3/uL (0-0.4); EOSINOPHILS % (AUTO) 2 % (1-7); LYMPHOCYTES # (AUTO) 1.82 x10^3/uL (1-3.4); LYMPHOCYTES % (AUTO) 18 % (22-44); MD NO; MEAN CORPUSCULAR HEMOGLOBIN 28.6 pg (27.5-34.5); MEAN CORPUSCULAR HGB CONC 33.7 g/dL (33.2-36.2); MEAN PLATELET VOLUME 9.6 fL (7.4-10.4); MONOCYTES # (AUTO) 0.65 x10^3/uL (0.2-0.8); MONOCYTES % (AUTO) 7 % (2-9); NEUTROPHILS # (AUTO) 7.21 x10^3/uL (1.8-6.8); NEUTROPHILS % (AUTO) 73 % (42-75); PLATELET COUNT 241 x10^3/uL (130-400); RED CELL DISTRIBUTION WIDTH 15.6 % (9.4-14.8)
[2018-01-15 08:14] VITALS: BP 94/55
[2018-01-15] MEDS ORDERED: LISINOPRIL 20 MG TABLET PO SCH (09:00)
[2018-01-15] MEDS: SERTRALINE 50MG TABLET PO SCH (09:39)
[2018-01-15] MEDS: metFORMIN 500 MG TABLET PO SCH ×2 (09:39→20:54)
[2018-01-15] MEDS: TAMSULOSIN 0.4 MG CAP.ER.24H PO SCH (09:39)
[2018-01-15] MEDS: OMEPRAZOLE 20 MG CAPSULE.DR PO SCH (09:39)
[2018-01-15 11:20] LABS: FREE T4 (FREE THYROXINE) 1.16 ng/dL (0.76-1.46); THYROID STIMULATING HORMONE 1.61 mIU/L (0.358-3.740)
[2018-01-15] MEDS: IRON SUCROSE COMPLEX 100MG/5ML IV SCH (11:41)
[2018-01-15 14:36] VITALS: BP 99/58
[2018-01-15] MEDS ORDERED: WARFARIN 5 MG TABLET PO-COUM ONE (18:00)
[2018-01-15 19:15] VITALS: BP 104/43
[2018-01-15] MEDS: ATORVASTATIN 80 MG TABLET PO SCH (20:55)
[2018-01-15] MEDS: QUETIAPINE 25MG TABLET PO SCH (20:55)
[2018-01-16 00:50] VITALS: BP 132/71
[2018-01-16] MEDS ORDERED: VANCOMYCIN 1,800 MG in SODIUM CHLORIDE 0.9% 250 ML IV SCH (01:00)
[2018-01-16 05:11] LABS: INTERNATIONAL NORMALIZED RATIO 1.75 (0.93-1.1); PROTHROMBIN TIME 18.2 Seconds (9.6-11.5)
[2018-01-16 05:32] LABS: MICROSCOPIC AUTO
[2018-01-16 05:33] LABS: CULTURE INDICATED? YES
[2018-01-16] MEDS: ASPIRIN 81 MG TABLET EC PO SCH (05:40)
[2018-01-16] MEDS: ATENOLOL 50 MG TABLET PO SCH (05:40)
[2018-01-16 07:22] VITALS: BP 120/56
[2018-01-16 08:32] LABS: BASOPHILS # (AUTO) 0.04 x10^3/uL (0-0.1); BASOPHILS % (AUTO) 0 % (0-1); EOSINOPHILS % (AUTO) 2 % (1-7); LYMPHOCYTES # (AUTO) 1.77 x10^3/uL (1-3.4); LYMPHOCYTES % (AUTO) 20 % (22-44); MD NO; MEAN CORPUSCULAR HEMOGLOBIN 27.5 pg (27.5-34.5); MEAN CORPUSCULAR HGB CONC 32.5 g/dL (33.2-36.2); MEAN CORPUSCULAR VOLUME 84.6 fL (81-97); MEAN PLATELET VOLUME 9.5 fL (7.4-10.4); MONOCYTES # (AUTO) 0.59 x10^3/uL (0.2-0.8); MONOCYTES % (AUTO) 7 % (2-9); NEUTROPHILS # (AUTO) 6.22 x10^3/uL (1.8-6.8); NEUTROPHILS % (AUTO) 71 % (42-75); PLATELET COUNT 225 x10^3/uL (130-400); RED BLOOD COUNT 3.74 x10^6/uL (4.38-5.82); RED CELL DISTRIBUTION WIDTH 15.6 % (9.4-14.8)
[2018-01-16] MEDS: APIXABAN 5 MG TABLET PO SCH ×2 (09:58→19:52)
[2018-01-16] MEDS: SERTRALINE 50MG TABLET PO SCH (09:58)
[2018-01-16] MEDS: OMEPRAZOLE 20 MG CAPSULE.DR PO SCH (09:58)
[2018-01-16] MEDS: metFORMIN 500 MG TABLET PO SCH ×2 (09:58→19:52)
[2018-01-16] MEDS: IRON SUCROSE COMPLEX 100MG/5ML IV SCH (09:58)
[2018-01-16] MEDS: LISINOPRIL 10 MG TABLET PO SCH (09:58)
[2018-01-16] MEDS: TAMSULOSIN 0.4 MG CAP.ER.24H PO SCH (09:58)
[2018-01-16 14:03] VITALS: BP 98/49
[2018-01-16] MEDS: QUETIAPINE 25MG TABLET PO SCH (19:52)
[2018-01-16] MEDS: ATORVASTATIN 80 MG TABLET PO SCH (19:52)
[2018-01-16 19:54] VITALS: BP 96/56
[2018-01-17 01:04] VITALS: BP 119/66
[2018-01-17 04:59] LABS: INTERNATIONAL NORMALIZED RATIO 1.69 (0.93-1.1); PROTHROMBIN TIME 17.6 Seconds (9.6-11.5)
[2018-01-17] MEDS: ASPIRIN 81 MG TABLET EC PO SCH (05:21)
[2018-01-17] MEDS: ATENOLOL 50 MG TABLET PO SCH (05:21)
[2018-01-17 07:13] VITALS: BP 112/61
[2018-01-17] MEDS: APIXABAN 5 MG TABLET PO SCH ×2 (08:11→20:08)
[2018-01-17] MEDS: SERTRALINE 50MG TABLET PO SCH (08:11)
[2018-01-17] MEDS: TAMSULOSIN 0.4 MG CAP.ER.24H PO SCH (08:11)
[2018-01-17] MEDS: metFORMIN 500 MG TABLET PO SCH ×2 (08:11→20:08)
[2018-01-17] MEDS: OMEPRAZOLE 20 MG CAPSULE.DR PO SCH (08:11)
[2018-01-17] MEDS: CALCIUM CARBONATE 500 MG TAB.CHEW PO PRN (08:11)
[2018-01-17] MEDS: IRON SUCROSE COMPLEX 100MG/5ML IV SCH (08:11)
[2018-01-17] MEDS: LISINOPRIL 10 MG TABLET PO SCH (08:11)
[2018-01-17] MEDS: METOPROLOL TARTRATE 25 MG TABLET PO SCH ×2 (08:43→18:29)
[2018-01-17 13:32] VITALS: BP 112/64
[2018-01-17 18:18] VITALS: BP 90/57
[2018-01-17 19:43] VITALS: BP 106/60
[2018-01-17] MEDS: ATORVASTATIN 80 MG TABLET PO SCH (20:08)
[2018-01-17] MEDS: QUETIAPINE 25MG TABLET PO SCH (20:08)
[2018-01-18 02:25] VITALS: BP 105/63
[2018-01-18] MEDS: ASPIRIN 81 MG TABLET EC PO SCH (06:25)
[2018-01-18] MEDS: METOPROLOL TARTRATE 25 MG TABLET PO SCH ×2 (06:25→17:55)
[2018-01-18 07:05] VITALS: BP 105/53
[2018-01-18] MEDS: IRON SUCROSE COMPLEX 100MG/5ML IV SCH (09:00)
[2018-01-18] MEDS: OMEPRAZOLE 20 MG CAPSULE.DR PO SCH (09:36)
[2018-01-18] MEDS: SERTRALINE 50MG TABLET PO SCH (09:36)
[2018-01-18] MEDS: APIXABAN 5 MG TABLET PO SCH ×2 (09:36→21:18)
[2018-01-18] MEDS: TAMSULOSIN 0.4 MG CAP.ER.24H PO SCH (09:36)
[2018-01-18] MEDS: metFORMIN 500 MG TABLET PO SCH ×2 (09:36→21:18)
[2018-01-18] MEDS: LISINOPRIL 10 MG TABLET PO SCH (09:37)
[2018-01-18 14:05] VITALS: BP 131/61
[2018-01-18] MEDS: QUETIAPINE 25MG TABLET PO SCH (21:18)
[2018-01-18] MEDS: ATORVASTATIN 80 MG TABLET PO SCH (21:18)
[2018-01-18 21:23] VITALS: BP 110/60
[2018-01-19 02:04] VITALS: BP 104/53
[2018-01-19 06:07] VITALS: BP 135/65
[2018-01-19] MEDS: ASPIRIN 81 MG TABLET EC PO SCH (06:08)
[2018-01-19] MEDS: METOPROLOL TARTRATE 25 MG TABLET PO SCH ×2 (06:13→17:39)
[2018-01-19 07:15] VITALS: BP 104/54
[2018-01-19] MEDS: LISINOPRIL 10 MG TABLET PO SCH (08:31)
[2018-01-19] MEDS: SERTRALINE 50MG TABLET PO SCH (08:31)
[2018-01-19] MEDS: OMEPRAZOLE 20 MG CAPSULE.DR PO SCH (08:31)
[2018-01-19] MEDS: metFORMIN 500 MG TABLET PO SCH ×2 (08:31→21:54)
[2018-01-19] MEDS: IRON SUCROSE COMPLEX 100MG/5ML IV SCH ×2 (08:31→08:34)
[2018-01-19] MEDS: TAMSULOSIN 0.4 MG CAP.ER.24H PO SCH (08:31)
[2018-01-19] MEDS: APIXABAN 5 MG TABLET PO SCH ×2 (08:31→21:54)
[2018-01-19 14:27] VITALS: BP 110/57
[2018-01-19 20:12] VITALS: BP 116/62
[2018-01-19] MEDS: QUETIAPINE 25MG TABLET PO SCH (21:54)
[2018-01-19] MEDS: ATORVASTATIN 80 MG TABLET PO SCH (21:54)
[2018-01-20 01:27] VITALS: BP 92/61
[2018-01-20] MEDS: ASPIRIN 81 MG TABLET EC PO SCH (06:17)
[2018-01-20] MEDS: METOPROLOL TARTRATE 25 MG TABLET PO SCH ×2 (06:17→18:38)
[2018-01-20 08:03] VITALS: BP 98/59
[2018-01-20 08:23] VITALS: BP 133/65
[2018-01-20] MEDS: metFORMIN 500 MG TABLET PO SCH ×2 (08:55→21:00)
[2018-01-20] MEDS: APIXABAN 5 MG TABLET PO SCH ×2 (08:55→21:00)
[2018-01-20] MEDS: LISINOPRIL 10 MG TABLET PO SCH (08:55)
[2018-01-20] MEDS: SERTRALINE 50MG TABLET PO SCH (08:56)
[2018-01-20] MEDS: TAMSULOSIN 0.4 MG CAP.ER.24H PO SCH (08:56)
[2018-01-20] MEDS: OMEPRAZOLE 20 MG CAPSULE.DR PO SCH (08:56)
[2018-01-20 13:45] VITALS: BP 127/57
[2018-01-20 20:43] VITALS: BP 119/67
[2018-01-20] MEDS: ATORVASTATIN 80 MG TABLET PO SCH (21:00)
[2018-01-20] MEDS: QUETIAPINE 25MG TABLET PO SCH (21:00)
[2018-01-21 01:31] VITALS: BP 107/47
[2018-01-21] MEDS: ASPIRIN 81 MG TABLET EC PO SCH (05:42)
[2018-01-21 05:43] VITALS: BP 103/55
[2018-01-21] MEDS: METOPROLOL TARTRATE 25 MG TABLET PO SCH ×2 (05:48→17:40)
[2018-01-21] MEDS: OMEPRAZOLE 20 MG CAPSULE.DR PO SCH (07:32)
[2018-01-21] MEDS: APIXABAN 5 MG TABLET PO SCH ×2 (07:32→21:15)
[2018-01-21] MEDS: TAMSULOSIN 0.4 MG CAP.ER.24H PO SCH (07:32)
[2018-01-21] MEDS: metFORMIN 500 MG TABLET PO SCH ×2 (07:33→21:14)
[2018-01-21] MEDS: LISINOPRIL 10 MG TABLET PO SCH (07:33)
[2018-01-21] MEDS: SERTRALINE 50MG TABLET PO SCH (07:36)
[2018-01-21 07:37] VITALS: BP 100/64
[2018-01-21 14:39] VITALS: BP 109/66
[2018-01-21 20:17] VITALS: BP 90/69
[2018-01-21] MEDS: ATORVASTATIN 80 MG TABLET PO SCH (21:15)
[2018-01-21] MEDS: QUETIAPINE 25MG TABLET PO SCH (21:15)
[2018-01-22 01:31] VITALS: BP 112/68
[2018-01-22 05:47] VITALS: BP 123/70
[2018-01-22] MEDS: METOPROLOL TARTRATE 25 MG TABLET PO SCH ×2 (05:48→17:27)
[2018-01-22] MEDS: ASPIRIN 81 MG TABLET EC PO SCH (05:48)
[2018-01-22 07:20] VITALS: BP 96/58
[2018-01-22] MEDS: OMEPRAZOLE 20 MG CAPSULE.DR PO SCH (10:15)
[2018-01-22] MEDS: APIXABAN 5 MG TABLET PO SCH ×2 (10:15→21:00)
[2018-01-22] MEDS: SERTRALINE 50MG TABLET PO SCH (10:16)
[2018-01-22] MEDS: metFORMIN 500 MG TABLET PO SCH ×2 (10:17→20:59)
[2018-01-22] MEDS: TAMSULOSIN 0.4 MG CAP.ER.24H PO SCH (10:17)
[2018-01-22] MEDS: LISINOPRIL 10 MG TABLET PO SCH (10:17)
[2018-01-22] MEDS ORDERED: POLYETHYLENE GLYCOL 17 GM PACKET NG ONE (11:00)
[2018-01-22] MEDS: DOCUSATE 50 MG/5 ML, 10ML UDC PO SCH ×2 (12:17→20:59)
[2018-01-22 13:20] VITALS: BP 105/59
[2018-01-22 20:08] VITALS: BP 109/63
[2018-01-22] MEDS: CALCIUM CARBONATE 500 MG TAB.CHEW PO PRN (20:59)
[2018-01-22] MEDS: QUETIAPINE 25MG TABLET PO SCH (20:59)
[2018-01-22] MEDS: ATORVASTATIN 80 MG TABLET PO SCH (20:59)
[2018-01-23 02:15] VITALS: BP 101/60
[2018-01-23] MEDS: ASPIRIN 81 MG TABLET EC PO SCH (05:22)
[2018-01-23] MEDS: METOPROLOL TARTRATE 25 MG TABLET PO SCH ×2 (05:22→17:40)
[2018-01-23] MEDS: TAMSULOSIN 0.4 MG CAP.ER.24H PO SCH (08:28)
[2018-01-23] MEDS: OMEPRAZOLE 20 MG CAPSULE.DR PO SCH (08:28)
[2018-01-23] MEDS: APIXABAN 5 MG TABLET PO SCH ×2 (08:28→20:46)
[2018-01-23] MEDS: metFORMIN 500 MG TABLET PO SCH ×2 (08:29→20:46)
[2018-01-23] MEDS: LISINOPRIL 10 MG TABLET PO SCH (08:29)
[2018-01-23] MEDS: SERTRALINE 50MG TABLET PO SCH (08:29)
[2018-01-23] MEDS: DOCUSATE 50 MG/5 ML, 10ML UDC PO SCH ×2 (08:31→20:45)
[2018-01-23 08:34] VITALS: BP 118/67
[2018-01-23 13:13] VITALS: BP 122/72
[2018-01-23 19:44] VITALS: BP 100/51
[2018-01-23] MEDS ORDERED: QUETIAPINE 100MG TABLET ONE (20:36)
[2018-01-23] MEDS: ATORVASTATIN 80 MG TABLET PO SCH (20:46)
[2018-01-23] MEDS: QUETIAPINE 25MG TABLET PO SCH (20:46)
[2018-01-24 01:00] VITALS: BP 109/58
[2018-01-24 05:39] VITALS: BP 122/57
[2018-01-24] MEDS: METOPROLOL TARTRATE 25 MG TABLET PO SCH ×2 (05:44→18:04)
[2018-01-24] MEDS: ASPIRIN 81 MG TABLET EC PO SCH (05:44)
[2018-01-24 07:49] VITALS: BP 116/50
[2018-01-24] MEDS: DOCUSATE 50 MG/5 ML, 10ML UDC PO SCH ×2 (10:14→21:33)
[2018-01-24] MEDS: LISINOPRIL 10 MG TABLET PO SCH (10:14)
[2018-01-24] MEDS: SERTRALINE 50MG TABLET PO SCH (10:15)
[2018-01-24] MEDS: OMEPRAZOLE 20 MG CAPSULE.DR PO SCH (10:15)
[2018-01-24] MEDS: APIXABAN 5 MG TABLET PO SCH ×2 (10:15→21:34)
[2018-01-24] MEDS: TAMSULOSIN 0.4 MG CAP.ER.24H PO SCH (10:15)
[2018-01-24] MEDS: metFORMIN 500 MG TABLET PO SCH ×2 (10:15→21:34)
[2018-01-24 13:53] VITALS: BP 130/65
[2018-01-24 19:57] VITALS: BP 107/61
[2018-01-24] MEDS: ATORVASTATIN 80 MG TABLET PO SCH (21:34)
[2018-01-24] MEDS: QUETIAPINE 25MG TABLET PO SCH (21:35)
[2018-01-25 03:24] VITALS: BP 95/49
[2018-01-25] MEDS: ASPIRIN 81 MG TABLET EC PO SCH (05:25)
[2018-01-25 05:30] VITALS: BP 122/65
[2018-01-25] MEDS: METOPROLOL TARTRATE 25 MG TABLET PO SCH ×2 (05:33→18:09)
[2018-01-25 07:51] VITALS: BP 99/52
[2018-01-25] MEDS: DOCUSATE 50 MG/5 ML, 10ML UDC PO SCH ×2 (10:19→20:36)
[2018-01-25] MEDS: TAMSULOSIN 0.4 MG CAP.ER.24H PO SCH (10:19)
[2018-01-25] MEDS: metFORMIN 500 MG TABLET PO SCH ×2 (10:20→20:37)
[2018-01-25] MEDS: LISINOPRIL 10 MG TABLET PO SCH (10:20)
[2018-01-25] MEDS: SERTRALINE 50MG TABLET PO SCH (10:20)
[2018-01-25] MEDS: OMEPRAZOLE 20 MG CAPSULE.DR PO SCH (10:20)
[2018-01-25] MEDS: APIXABAN 5 MG TABLET PO SCH ×2 (10:21→20:36)
[2018-01-25 14:28] VITALS: BP 118/58
[2018-01-25] MEDS: CALCIUM CARBONATE 500 MG TAB.CHEW PO PRN (18:11)
[2018-01-25 20:32] VITALS: BP 120/55
[2018-01-25] MEDS: QUETIAPINE 25MG TABLET PO SCH (20:36)
[2018-01-25] MEDS: ATORVASTATIN 80 MG TABLET PO SCH (20:36)
[2018-01-26 02:19] VITALS: BP 106/62
[2018-01-26 05:05] VITALS: BP 116/58
[2018-01-26] MEDS: METOPROLOL TARTRATE 25 MG TABLET PO SCH (05:07)
[2018-01-26] MEDS: ASPIRIN 81 MG TABLET EC PO SCH (05:08)
[2018-01-26] MEDS: APIXABAN 5 MG TABLET PO SCH (07:43)
[2018-01-26] MEDS: metFORMIN 500 MG TABLET PO SCH (07:43)
[2018-01-26] MEDS: OMEPRAZOLE 20 MG CAPSULE.DR PO SCH (07:43)
[2018-01-26] MEDS: TAMSULOSIN 0.4 MG CAP.ER.24H PO SCH (07:43)
[2018-01-26] MEDS: LISINOPRIL 10 MG TABLET PO SCH (07:45)
[2018-01-26] MEDS: SERTRALINE 50MG TABLET PO SCH (07:46)
[2018-01-26] MEDS: DOCUSATE 50 MG/5 ML, 10ML UDC PO SCH (07:46)
[2018-01-26 08:20] VITALS: BP 131/69
[2018-01-26 14:19] VITALS: BP 108/57
[2018-01-26] MEDS ORDERED: APIX5TAB PO (17:05)
[2018-01-26] MEDS ORDERED: ASPI-515 PO (17:07)
[2018-01-26] MEDS ORDERED: LISI-167 PO (17:08)
[2018-01-26] MEDS ORDERED: METO25TA35 PO (17:09)
== END 2018-01-26 17:35 | disposition home or self-care (01) | DRG 314 ==
LOC: 5SO 15:46 → 4WST 01-18 05:08 → 3NW 01-20 22:46
PROVIDERS: ADMIT Internal Medicine; ATTEND Internal Medicine
DX: I95.9 Hypotension, unspecified (principal); E43 Unspecified severe protein-calorie malnutrition; D68.69 Other thrombophilia; F43.10 Post-traumatic stress disorder, unspecified; R53.81 Other malaise; K59.00 Constipation, unspecified; F22 Delusional disorders; I48.2 Chronic atrial fibrillation; R73.9 Hyperglycemia, unspecified; E83.42 Hypomagnesemia; I25.10 Atherosclerotic heart disease of native coronary artery without angina pectoris; I10 Essential (primary) hypertension; R62.7 Adult failure to thrive; Z66 Do not resuscitate; Z87.01 Personal history of pneumonia (recurrent); Z95.0 Presence of cardiac pacemaker; Z59.0 Homelessness; Z79.01 Long term (current) use of anticoagulants; Z68.25 Body mass index [BMI] 25.0-25.9, adult; I25.2 Old myocardial infarction; Z88.6 Allergy status to analgesic agent; Z91.012 Allergy to eggs; Z88.8 Allergy status to other drugs, medicaments and biological substances; Z91.018 Allergy to other foods
CPT/HCPCS: 36415; 80048; 81001; 82306; 82607; 82728; 83540; 83550; 83605; 83735; 84100; 84439; 84443; 84484; 85025; 85610; 87040; 87077; 87086; 87186; G0378; J1756; J2543; J3370; Q0162; J7030; J7040

== ENCOUNTER 2018-01-27 12:48 | Inpatient (IN) | payer OTHER ==
[~2018-01-27] VITALS: Ht 193 cm; Wt 98.4 kg
[~2018-01-27 12:48] MED LIST changes: +ASPI-515 PO; +LISI-167 PO; +METO25TA35 PO
[2018-01-27 14:19] LABS: BASOPHILS # (AUTO) 0.03 x10^3/uL (0-0.1); BASOPHILS % (AUTO) 0 % (0-1); EOSINOPHILS # (AUTO) 0.03 x10^3/uL (0-0.4); EOSINOPHILS % (AUTO) 0 % (1-7); LYMPHOCYTES # (AUTO) 1.15 x10^3/uL (1-3.4); LYMPHOCYTES % (AUTO) 15 % (22-44); MD NO; MEAN CORPUSCULAR HEMOGLOBIN 27.9 pg (27.5-34.5); MEAN CORPUSCULAR HGB CONC 32.6 g/dL (33.2-36.2); MEAN CORPUSCULAR VOLUME 85.5 fL (81-97); MEAN PLATELET VOLUME 9.5 fL (7.4-10.4); MONOCYTES # (AUTO) 0.41 x10^3/uL (0.2-0.8); MONOCYTES % (AUTO) 5 % (2-9); NEUTROPHILS # (AUTO) 6.17 x10^3/uL (1.8-6.8); NEUTROPHILS % (AUTO) 79 % (42-75); PLATELET COUNT 203 x10^3/uL (130-400); RED BLOOD COUNT 4.21 x10^6/uL (4.38-5.82); RED CELL DISTRIBUTION WIDTH 15.6 % (9.4-14.8)
[2018-01-27 14:31] LABS: ALBUMIN 3.3 g/dL (3.4-5.0); ANION GAP 11 mmol/L (5-15); CALCIUM 8.5 mg/dL (8.5-10.1); CHLORIDE 105 mmol/L (98-107)
[2018-01-27 14:36] LABS: ALANINE AMINOTRANSFERASE 13 U/L (12-78); ALKALINE PHOSPHATASE 91 U/L (45-117); CREATININE 1.68 mg/dL (0.7-1.3); TOTAL PROTEIN 6.5 g/dL (6.4-8.2); TROPONIN I 0.039 ng/mL (0.000-0.045)
[2018-01-27] MEDS ORDERED: PHARMACY MAY ADJ FOR RENAL FX MC PRN (16:30)
[2018-01-27] MEDS: INSULIN LISPRO 100 UNITS/ML, PEN SQ-INSULIN SCH ×2 (17:00→21:00)
[2018-01-27] MEDS ORDERED: GABAPENTIN 300 MG CAPSULE PO PRN (17:00)
[2018-01-27] MEDS ORDERED: NITROGLYCERIN 0.4 MG BOTTLE (25 TABS) SL PRN (17:00)
[2018-01-27] MEDS ORDERED: DOCUSATE 100 MG CAPSULE PO PRN (17:00)
[2018-01-27] MEDS ORDERED: ONDANSETRON ODT 4 MG PO PRN (17:00)
[2018-01-27] MEDS ORDERED: GLUCAGON 1 MG IM PRN (17:00)
[2018-01-27] MEDS ORDERED: DEXTROSE 4 GM TAB.CHEW PO PRN (17:00)
[2018-01-27] MEDS ORDERED: MAALOX/HYOSCYAMINE/LIDOCAINE 45 ML BTL PO PRN (17:00)
[2018-01-27] MEDS ORDERED: DEXTROSE 50%, 50ML SYRINGE IVPush PRN (17:00)
[2018-01-27 18:16] VITALS: BP 105/58
[2018-01-27] MEDS: SODIUM CHLORIDE 0.9% 1,000 ML IV SCH (20:00)
[2018-01-27] MEDS ORDERED: MAGNESIUM SULFATE 4 GM in SODIUM CHLORIDE 0.9% 100 ML IV ONE (20:30)
[2018-01-27 20:33] LABS: TROPONIN I 0.042 ng/mL (0.000-0.045)
[2018-01-27] MEDS: SODIUM CHLORIDE FLUSH 10ML SYR IVF SCH (20:54)
[2018-01-27] MEDS: APIXABAN 5 MG TABLET PO SCH (20:54)
[2018-01-27] MEDS: ATORVASTATIN 80 MG TABLET PO SCH (20:54)
[2018-01-27] MEDS: OMEPRAZOLE 20 MG CAPSULE.DR PO SCH (20:55)
[2018-01-27] MEDS: METOPROLOL TARTRATE 25 MG TABLET PO SCH (20:55)
[2018-01-27] MEDS: QUETIAPINE 25MG TABLET PO SCH (20:57)
[2018-01-27] MEDS ORDERED: METOPROLOL TARTRATE 25 MG TABLET PO SCH (21:00)
[2018-01-27 22:59] VITALS: BP 110/65
[2018-01-28] VITALS (9 sets, daily range): BP systolic 99–148; BP diastolic 51–81
[2018-01-28 02:51] LABS: ALANINE AMINOTRANSFERASE 11 U/L (12-78); ALBUMIN 2.9 g/dL (3.4-5.0); ANION GAP 10 mmol/L (5-15); CALCIUM 8.5 mg/dL (8.5-10.1); CHLORIDE 105 mmol/L (98-107); CREATININE 1.33 mg/dL (0.7-1.3)
[2018-01-28 02:53] LABS: ALKALINE PHOSPHATASE 81 U/L (45-117); BILIRUBIN,TOTAL 0.8 mg/dL (0.2-1.0); TOTAL PROTEIN 5.7 g/dL (6.4-8.2)
[2018-01-28 02:57] LABS: TROPONIN I 0.043 ng/mL (0.000-0.045)
[2018-01-28 02:59] LABS: MD YES; MEAN CORPUSCULAR HEMOGLOBIN 27.7 pg (27.5-34.5); MEAN CORPUSCULAR HGB CONC 32.6 g/dL (33.2-36.2); MEAN PLATELET VOLUME 9.6 fL (7.4-10.4); PLATELET COUNT 181 x10^3/uL (130-400); RED BLOOD COUNT 3.78 x10^6/uL (4.38-5.82); RED CELL DISTRIBUTION WIDTH 16.3 % (9.4-14.8)
[2018-01-28 06:00] LABS: <RBC MORPHOLOGY> NORMAL; BASOS#(MANUAL) 0.06 x10^3/uL (0-0.1); BASOS% (MANUAL) 1 % (0-1); EOS#(MANUAL) 0.41 x10^3/uL (0.0-0.4); EOS% (MANUAL) 7 % (1-7); LYMPH#(MANUAL) 2.61 x10^3/uL (1-3.4); LYMPHS% (MANUAL) 45 % (22-44); MONOS#(MANUAL) 0.29 x10^3/uL (0.3-2.7); MONOS% (MANUAL) 5 % (2-9); SEG#(MANUAL) 2.44 x10^3/uL (1.8-6.8); SEGS% (MANUAL) 42 % (42-75)
[2018-01-28 06:01] LABS: <PLATELET ESTIMATE> ADEQUATE; <PLT MORPHOLOGY> NORMAL PLT MORPH
[2018-01-28] MEDS: INSULIN LISPRO 100 UNITS/ML, PEN SQ-INSULIN SCH ×4 (07:00→21:07)
[2018-01-28 07:41] LABS: MICROSCOPIC AUTO
[2018-01-28 07:54] LABS: CULTURE INDICATED? YES
[2018-01-28] MEDS ORDERED: OMEPRAZOLE 20 MG CAPSULE.DR PO SCH (09:00)
[2018-01-28] MEDS: ASPIRIN 81 MG TABLET EC PO SCH (09:00)
[2018-01-28] MEDS: ISOSORBIDE MONONITRATE ER 30 MG TABLET PO SCH (09:52)
[2018-01-28] MEDS: SODIUM CHLORIDE FLUSH 10ML SYR IVF SCH ×2 (09:52→21:09)
[2018-01-28] MEDS: TAMSULOSIN 0.4 MG CAP.ER.24H PO SCH (09:53)
[2018-01-28] MEDS: SERTRALINE 50MG TABLET PO SCH (09:53)
[2018-01-28] MEDS: METOPROLOL TARTRATE 25 MG TABLET PO SCH ×2 (09:54→21:09)
[2018-01-28] MEDS: OMEPRAZOLE 20 MG CAPSULE.DR PO SCH ×2 (09:56→20:00)
[2018-01-28] MEDS: APIXABAN 5 MG TABLET PO SCH ×2 (09:56→19:59)
[2018-01-28] MEDS: SODIUM CHLORIDE 0.9% 1,000 ML IV SCH (12:06)
[2018-01-28] MEDS: QUETIAPINE 25MG TABLET PO SCH (20:00)
[2018-01-28] MEDS: ATORVASTATIN 80 MG TABLET PO SCH (20:00)
[2018-01-29 02:50] VITALS: BP 144/60
[2018-01-29 06:44] VITALS: BP 126/66
[2018-01-29] MEDS: INSULIN LISPRO 100 UNITS/ML, PEN SQ-INSULIN SCH ×2 (07:00→11:00)
[2018-01-29] MEDS: ASPIRIN 81 MG TABLET EC PO SCH (09:00)
[2018-01-29] MEDS: ISOSORBIDE MONONITRATE ER 30 MG TABLET PO SCH (09:55)
[2018-01-29] MEDS: APIXABAN 5 MG TABLET PO SCH (09:55)
[2018-01-29] MEDS: OMEPRAZOLE 20 MG CAPSULE.DR PO SCH (09:55)
[2018-01-29] MEDS: SERTRALINE 50MG TABLET PO SCH (09:55)
[2018-01-29] MEDS: SODIUM CHLORIDE FLUSH 10ML SYR IVF SCH (09:56)
[2018-01-29] MEDS: TAMSULOSIN 0.4 MG CAP.ER.24H PO SCH (09:56)
[2018-01-29] MEDS: METOPROLOL TARTRATE 25 MG TABLET PO SCH (10:01)
[2018-01-29] MEDS ORDERED: LISI-167 PO (12:52)
[2018-01-29] MEDS ORDERED: ISOS30TA8 PO (12:52)
[2018-01-29 15:48] VITALS: BP 128/57
== END 2018-01-29 16:33 | disposition home or self-care (01) | DRG 682 ==
LOC: ED 13:10 → EDIP 15:48 → 5SO 18:05
PROVIDERS: ADMIT Internal Medicine; ATTEND Internal Medicine
DX: N17.0 Acute kidney failure with tubular necrosis (principal); E43 Unspecified severe protein-calorie malnutrition; D68.69 Other thrombophilia; I25.119 Atherosclerotic heart disease of native coronary artery with unspecified angina pectoris; E86.0 Dehydration; I10 Essential (primary) hypertension; I25.10 Atherosclerotic heart disease of native coronary artery without angina pectoris; G62.9 Polyneuropathy, unspecified; I95.9 Hypotension, unspecified; R00.1 Bradycardia, unspecified; I48.2 Chronic atrial fibrillation; D64.9 Anemia, unspecified; Z66 Do not resuscitate; G90.8 Other disorders of autonomic nervous system; K21.9 Gastro-esophageal reflux disease without esophagitis; R53.81 Other malaise; Z79.01 Long term (current) use of anticoagulants; I25.2 Old myocardial infarction; Z87.01 Personal history of pneumonia (recurrent); Z87.891 Personal history of nicotine dependence; Z95.1 Presence of aortocoronary bypass graft; Z95.0 Presence of cardiac pacemaker; Z59.0 Homelessness; Z68.26 Body mass index [BMI] 26.0-26.9, adult; Z88.1 Allergy status to other antibiotic agents; Z88.5 Allergy status to narcotic agent; Z88.8 Allergy status to other drugs, medicaments and biological substances; Z87.11 Personal history of peptic ulcer disease
CPT/HCPCS: 36415; 70450; 71045; 80053; 81001; 82962; 83735; 83880; 84484; 85025; 87086; 93005; 93880; 99285; G0378; J3475; J1815; J7030